=== PATIENT | male | born 1935 | race Caucasian/White ===

== ENCOUNTER → 2016-04-07 | Outpatient (CLI) | payer OTHER ==
[~2016-04-07] MED LIST: COEN10CA5 PO; DVN80 PO; HAWT1CAP PO; LEVO112T2 PO; METO25TA3 PO; MULTTAB58 PO; OPTIRAY 320 IV PRN; TIMO0.2527 OPB
--- NOTE | 2016-04-07 10:28 | DIAGNOSTIC IMAGING REPORT ---
CT NECK WITH INTRAVENOUS CONTRAST HISTORY: History of lymphoma. LOCALIZED SWELLING, MASS RIGHT SIDE OF NECK TECHNIQUE: Multiaxial CT images of the neck were performed following the use of intravenous contrast. COMPARISON STUDY: None. FINDINGS: There is a skin marker within the right side of the neck. Deep to the skin marker there is a normal-appearing submandibular gland. There is no significant lymphadenopathy. A few subcentimeter cervical lymph nodes do not meet CT criteria for pathologic involvement. The lung apices are clear. No suspicious lytic or blastic osseous lesions. No fluid levels within the paranasal sinuses. Tiny retention cysts within the left sphenoid sinus. The mastoid air cells are clear. The major salivary glands enhance symmetrically. Moderate to severe disc space narrowing within the mid to lower cervical spine. The prevertebral soft tissues and the epiglottis are normal in thickness. No evidence for a mass or abscess within the neck. The thyroid gland enhances normally. The visualized brain parenchyma and orbits are unremarkable. The pterygopalatine fossa are well-maintained. No significant stenosis seen within the carotid or vertebral arteries. Within the left submandibular subcutaneous fat abutting the skin surface on image 61 there is an 11 mm hypodense lesion. This appears to contain a few punctate calcifications. This favors a sebaceous cyst. IMPRESSION: 1. No mass, lymphadenopathy, or abscess within the neck. Specifically, there is no abnormality deep to the right lateral neck skin marker corresponding to the patient's questionable palpable abnormality. 2. An 11 mm subcutaneous lesion within the left submandibular location which appears to contain a few punctate calcifications. This favors a sebaceous cyst. Electronically signed by: Kevon Rodriguez M.D. 04/07/2016 10:26 AM Dictated Date/Time: 04/07/2016 10:17 AM
== END | disposition home or self-care (01) ==
LOC: C.CTS 09:49
PROVIDERS: ATTEND Nurse Practitioner
DX: R22.1 Localized swelling, mass and lump, neck (principal); C91.10 Chronic lymphocytic leukemia of B-cell type not having achieved remission

== ENCOUNTER → 2017-06-28 | Outpatient (CLI) | payer OTHER ==
[~2017-06-28] MED LIST changes: -OPTIRAY 320 IV PRN
--- NOTE | 2017-06-28 12:49 | DIAGNOSTIC IMAGING REPORT ---
C-SPINE ROUTINE 4 OR 5 VIEWS CLINICAL HISTORY: Preinjection. Chronic pain and stiffness. COMPARISON STUDY: Neck CT April 07, 2016. FINDINGS: C7 is partially obscured on this exam. There is reversal of the normal cervical lordosis with moderate to severe disc space narrowing at C4-C5, C5-C6 and C6-C7. There is moderate multilevel facet arthrosis. There is no fracture or suspicious lesion within visualized portions of the cervical spine. Prevertebral soft tissues are unremarkable. Calcifications projecting posterior to the spinous processes of C3 and C4 are chronic. IMPRESSION: 1. Partial obscuration of C7. 2. Moderate to severe multilevel disc space narrowing, most pronounced at C4-C5, C5-C6 and C6-C7. 3. Moderate multilevel facet arthrosis. Electronically signed by: Clemente Travis M.D. 06/28/2017 12:48 PM Dictated Date/Time: 06/28/2017 12:43 PM
== END | disposition home or self-care (01) ==
LOC: C.RAD 12:03
PROVIDERS: ATTEND Physician Assistant
DX: M54.2 Cervicalgia (principal)